=== PATIENT | male | born 1935 | race Caucasian/White ===

== ENCOUNTER 2019-01-03 12:20 | Emergency (ER) | payer OTHER, MEDICAID ==
[~2019-01-03] VITALS: Ht 160 cm; Wt 55.3 kg
[2019-01-03 12:29] VITALS: BP_SYST 113
--- NOTE | 2019-01-03 12:34 | NUR ---
ER Dr. Lewis at bedside examining patient.
--- NOTE | 2019-01-03 12:35 | NUR ---
Patient to ER bed 6 to gown for evaluation. Side rails up.
--- NOTE | 2019-01-03 12:36 | NUR ---
pt arrives from via BLS. Pt is s[facility]p fall at a [facility]. no visible injuries noted. Pt reports 3/10 pain on the left side of the head. Will continue to monitor.
--- NOTE | 2019-01-03 13:01 | NUR ---
Patient transported to radiology via gurney, accompanied by securities trader.
--- NOTE | 2019-01-03 13:13 | NUR ---
pt returned from CT scan
[2019-01-03 15:15] VITALS: BP_SYST 102
--- NOTE | 2019-01-03 15:15 | NUR ---
Patient given written and verbal discharge instructions and verbalizes understanding. ER MD discussed with patient the results and treatment provided. Patient in stable condition. ID arm band removed. IV catheter removed intact and dressing applied, no active bleeding. Rx of Naprosyn given. Patient educated on pain management and to follow up with PMD. Pain Scale 0/10. Discharge summary sent with patient, transport to [facility], Medication side effect fact sheet provided.
--- NOTE | 2019-01-03 15:15 | NUR ---
Report to Ellyn KHAN, [facility]
== END 2019-01-03 15:15 | disposition home or self-care (01) ==
LOC: SED 12:20
DX: S00.03XA Contusion of scalp, initial encounter (principal); F03.90 Unspecified dementia, unspecified severity, without behavioral disturbance, psychotic disturbance, mood disturbance, and anxiety; W19.XXXA Unspecified fall, initial encounter; Y93.89 Activity, other specified; Y92.89 Other specified places as the place of occurrence of the external cause; Y99.8 Other external cause status
CPT/HCPCS: 70450-TC; 99284